=== PATIENT | female | born 1970 | race Caucasian/White ===

== ENCOUNTER 2017-10-15 07:13 | Day surgery (SDC) | payer BC ==
[2017-10-15] MEDS ORDERED: Propofol 200 MG/20 ML SDV ONE (07:19)
[2017-10-15] MEDS ORDERED: Bupivacaine 25%/EPINEPHrine/PF 30 ML ONE (07:32)
--- NOTE | 2017-10-15 07:40 | PCM.PREANE ---
Preanesthetic Assessment - Anesthesia/Transfusion/Family Hx Anesthesia History: Prior Anesthesia Without Reaction Family History of Anesthesia Reaction: No Transfusion History: No Prior Transfusion(s) Intubation History: Unknown - Review of Systems General: No Symptoms Pulmonary: No Symptoms Cardiovascular: No Symptoms Gastrointestinal: No Symptoms Neurological: No Symptoms Other: Reports: None - Physical Assessment Height: 1.7 m Weight: 96.162 kg ASA Class: 2 Mental Status: Alert & Oriented x3 Airway Class: Mallampati = 2 Dentition: Reports: Normal Dentition (3) Thyro-Mental Finger Breadths: 3 Mouth Opening Finger Breadths: 3 ROM/Head Extension: Full Lungs: Normal Respiratory Effort, Wheezing (mild expiratory wheesing) Cardiovascular: Regular Rate, Regular Rhythm - Allergies Allergies/Adverse Reactions: Allergies Allergy/AdvReac Type Severity Reaction Status Date / Time No Known Allergies Allergy Verified 10/10/17 09:19 - Blood Blood Available: No - Anesthesia Plan Pre-Op Medication Ordered: None - Acknowledgements Anesthesia Type Planned: MAC Pt an Appropriate Candidate for the Planned Anesthesia: Yes Alternatives and Risks of Anesthesia Discussed w Pt/Guardian: Yes Pt/Guardian Understands and Agrees with Anesthesia Plan: Yes PreAnesthesia Questionnaire - Past Health History Medical/Surgical History: Denies Medical/Surgical History HEENT History: Reports: Other (See Below) Other HEENT History: wears glasses/contacts Cardiovascular History: Reports: None Respiratory History: Reports: None Gastrointestinal History: Reports: None Genitourinary History: Reports: None 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 History: 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: Ectopic , Other OB/BYN History: tubal Neurological History: Reports: Other (See Below) Other Neuro History: Restless Leg Syndrome Psychiatric History: Reports: Anxiety, Depression Endocrine/Metabolic History: Reports: Obesity/BMI 30+ Hematologic History: Reports: None Immunologic History: Reports: None Oncologic (Cancer) History: Reports: None Dermatologic History: Reports: None - Infectious Disease History Infectious Disease History: Reports: Chicken Pox - Past Surgical History Head Surgeries/Procedures: Reports: None GI Surgical History: Reports: Bariatric Procedure Other GI Surgeries/Procedures: hx gastric bypass Female Surgical History: Reports: Hysterectomy Other Female Surgeries/Procedures: laparoscopy for tubal Musculoskeletal Surgical History: Reports: Knee Replacement, Other (See Below) Other Musculoskeletal Surgeries/Procedures:: Left TKA with later revision (re- replacement), trigger finger release left hand, foot surgery - SUBSTANCE USE Smoking Status *Q: Current Every Day Smoker (1/2 -3/4 ppd) Tobacco Use Within Last Twelve Months: Cigarettes Recreational Drug Use History: No - HOME MEDS Home Medications: Home Meds Sertraline [Zoloft] 100 mg PO DAILY 09/13/17 [History] Montelukast [Singulair] 1 tab PO ASDIRECTED 10/09/17 [History] Multivitamin [Multivitamins] 1 tab PO DAILY 10/09/17 [History] Pramipexole [Mirapex] 2 mg PO BEDTIME 10/09/17 [History] - CURRENT (IN HOUSE) MEDS Current Meds: Current Medications Hydrocodone Bitart/Acetaminophen (Avery 325-5 Mg) 1 tab PO Q4H PRN PRN Reason: Pain Bupivacaine HCl/Epinephrine Bitart (Marcaine 0.25%/Epinephrine 1:200,000) 10 ml INJECT ONETIME ONE Stop: 10/15/17 08:01 Cefazolin Sodium/Dextrose 2 gm (/ Premix) 50 mls @ 100 mls/hr IV ONETIME ONE Stop: 10/15/17 08:29 Lactated Ringer's (Ringers, Lactated) 1,000 mls @ 125 mls/hr IV ASDIRECTED ANIKA Discontinued Medications Propofol (Diprivan 20 Ml) Confirm Administered Dose 400 mg .ROUTE .STK-MED ONE Stop: 10/15/17 07:20
[2017-10-15] MEDS ORDERED: Ketorolac 30 MG/ML SDV ONE (07:50)
[2017-10-15] MEDS ORDERED: Lidocaine 2% 5 ML SDV ONE (07:50)
[2017-10-15] MEDS ORDERED: Sodium Chloride 0.9% 20 ML ONE (07:58)
[2017-10-15] MEDS ORDERED: ceFAZolin 1 GM Vial ONE (07:58)
[2017-10-15] MEDS ORDERED: Lactated Ringers 1,000 ML IV SCH (08:00)
[2017-10-15] MEDS ORDERED: Bupivacaine 0.25%/EPINEPHrine 1:200,000 10 ML SDV INJECT ONE (08:00)
[2017-10-15] MEDS ORDERED: ceFAZolin 2 GM in Premix Bag 1 BAG IV ONE (08:00)
[2017-10-15] MEDS ORDERED: Acetaminophen/HYDROcodone 325-5 MG Tab PO PRN (08:00)
[2017-10-15] MEDS ORDERED: fentaNYL 100 MCG/2 ML SDV ONE (08:13)
[2017-10-15] MEDS ORDERED: Midazolam 1 MG/ML 2 ML SDV ONE (08:13)
[2017-10-15] MEDS ORDERED: fentaNYL 100 MCG/2 ML SDV IVPUSH PRN (08:36)
--- NOTE | 2017-10-15 09:10 | PCM48HPAN ---
Post Anesthesia Note - EVALUATION WITHIN 48HRS OF ANESTHETIC Vital Signs in Normal Range: Yes Patient Participated in Evaluation: Yes Respiratory Function Stable: Yes Airway Patent: Yes Cardiovascular Function Stable: Yes Hydration Status Stable: Yes Pain Control Satisfactory: Yes Nausea and Vomiting Control Satisfactory: Yes Mental Status Recovered: Yes - COMMENTS/OBSERVATIONS Free Text/Narrative:: No anesthesia problems, patient skipped recovery room phase of postoperative care.
--- NOTE | 2017-10-15 15:47 | PCM.OPNOTE ---
- General Post-Op/Procedure Note Date of Surgery/Procedure: 10/15/17 Operative Procedure(s): right trigger thumb release Pre Op Diagnosis: right trigger thumb Post-Op Diagnosis: Same Anesthesia Technique: Local, MAC Primary Surgeon: Khadra Mccurdy Title Assistant: Tiffany Mckeon Condition: Good Free Text/Narrative:: Intake & Output 10/14/17 10/15/17 10/15/17 23:59 07:59 15:59 Intake Total 200 Balance 200
--- NOTE | 2017-10-20 14:33 | OR ---
SURGEON: YAMILEX PABON MD DATE OF PROCEDURE: 10/15/2017 PREOPERATIVE DIAGNOSIS: Right trigger thumb. POSTOPERATIVE DIAGNOSIS: Right trigger thumb. PROCEDURE: Right trigger thumb release. SUPPORT SERVICES COORDINATOR: MAGDA Cabrera REASON SUPPORT SERVICES COORDINATOR WAS NECESSARY: Retraction, prepping, draping, and closure assistance. INDICATIONS: Ms. Poole is a 47-year-old female, seen today in evaluation for right trigger thumb. Risks and benefits of release were discussed with her including, but not limited to, bleeding, infection, damage to underlying or overlying structures, possible need for future interventions, and possible scarring. PROCEDURE IN DETAIL: After informed consent was obtained, the patient was brought to the operating theater and laid in supine position. After adequate local MAC anesthesia was obtained, the area was prepped and draped, and a time-out was completed to confirm side and site. The arm was then exsanguinated and the tourniquet was insufflated to 200 mmHg after injection of local anesthesia. Attention was then paid to an incision directly over the A1 alma of the right thumb. Dissection was carried through the subcutaneous tissues, which was significantly inflamed and the alma itself was directly visualized. A 15 blade was used to transect this, and then dissection distally and proximally was undertaken using a Littler scissor under direct visualization. Once adequately released, the area was copiously irrigated and closed using 5-0 nylon stitch in a horizontal mattress fashion. Once adequately closed, the wound was dressed with Xeroform, fluffs, and a Kerlix gauze dressing, and a 2-inch Froylan wrap. The patient tolerated the procedure well. All count of needles were correct at the end of the case. FOLLOWUP INSTRUCTIONS: The patient will see us in 10 to 14 days, sooner if any problems, questions, or concerns. She will be given a release to go back to work next Friday as long as she is well tolerated pain justice. All questions answered. HONEY / NEHA /[id number]
== END 2017-10-15 09:16 | disposition home or self-care (01) ==
LOC: MW.SDS 07:13 → MERGE 08:45 → MW.SDS 09:16
PROVIDERS: ATTEND Plastic Surgery
DX: M65.311 Trigger thumb, right thumb (principal); Z79.899 Other long term (current) drug therapy; F17.200 Nicotine dependence, unspecified, uncomplicated
CPT/HCPCS: 26055; J0690; J1885; J2250; J3010; J7120; 01810; J2704

== ENCOUNTER 2019-10-10 08:59 | Emergency (ER) | payer BC, OTHER ==
--- NOTE | 2019-10-10 09:23 | EDM.PDOC ---
ED HPI GENERAL MEDICAL PROBLEM - General Chief Complaint: Lower Extremity Injury/Pain Stated Complaint: PAIN IN FOOT Time Seen by Provider: 10/10/19 09:07 - History of Present Illness INITIAL COMMENTS - FREE TEXT/NARRATIVE: HPI 49-year-old female presents for evaluation of gradual onset right plantar midfoot pain that is worsened with weight or palpation and relieved by rest. Patient notes a history of right foot plantar fasciitis with similar symptoms. Prior surgical intervention for plantar fasciitis. Symptoms began gradually last night when the patient went out to eat (reportedly with a different pair of footwear at the time), has taken no pain medications in the intervening time. Remains ambulatory. Declining crutches. ROS with no recent constitutional symptoms. Exam Gen: Pleasant, nontoxic-appearing, resting comfortably. HEENT: NC, AT, PEERL, EOMI. Resp: Unlabored respirations with a normal work of breathing. Card: Extremities warm and well perfused. GI: Non-distended. : Deferred MSK: Right calf without visible or palpable trauma. Ankle visually normal without ecchymosis inferior to the lateral malleolus. No tenderness over the posterior lateral malleolus, no tenderness over the posterior medial malleolus. Able to fully dorsiflex, plantarflex, annemarie, and invert the ankle with full functional range of motion . Foot visually normal with tenderness to palpation over the plantar aponeurosis, otherwise without tenderness to palpation, specifically including the navicular bone and the base of the 5th metatarsal. Able flex and extend all toes. Muscle compartments of the foot are soft. Neurovascular 2+ DP and PT pulses. Sensation grossly intact to touch on the calf. Sensation intact to touch on all toes, first web space, the medial, lateral, plantar and dorsal surfaces of the foot. Gait - Patient able to take four steps with a minimally antalgic gait. Neuro: alert and oriented 3, no facial asymmetry, vision and hearing WNL. Heme/Lymph: Deferred Skin: Normal color with no visible lesions (other than noted above). Psych: Mood and affect appropriate. MDM Previous chart, nursing note, and vitals reviewed. A: 49-year-old female presents for evaluation of gradual onset right plantar midfoot pain that is worsened with weight or palpation and relieved by rest. DDx & Evaluation: CMS intact, exam consistent with plantar fasciitis, no features to suggest infection, history and exam without evidence of fracture. Location pain is not consistent with Mortons neuroma. Discussed short-term use of crutches, patient declined. Provide patient with information regarding home physical therapy, recommended NSAIDs, and PCP follow-up within 48 hours. Impression: plantar fasciitis. - Related Data Allergies Allergy/AdvReac Type Severity Reaction Status Date / Time No Known Allergies Allergy Verified 10/10/19 09:17 Home Meds: Home Meds Montelukast [Singulair] 1 tab PO ASDIRECTED 10/09/17 [History] Multivitamin [Multivitamins] 1 tab PO DAILY 10/09/17 [History] Pramipexole [Mirapex] 2 mg PO BEDTIME 10/09/17 [History] Past Medical History - Past Health History Medical/Surgical History: Denies Medical/Surgical History HEENT History: Reports: Other (See Below) Other HEENT History: wears glasses/contacts Cardiovascular History: Reports: None Respiratory History: Reports: None Gastrointestinal History: Reports: None Genitourinary History: Reports: None 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 History: Reports: Ectopic , Other BAGGAGE SCREENER History: tubal Neurological History: Reports: Other (See Below) Other Neuro History: Restless Leg Syndrome Psychiatric History: Reports: None Endocrine/Metabolic History: Reports: Obesity/BMI 30+ Hematologic History: Reports: None Immunologic History: Reports: None Oncologic (Cancer) History: Reports: None Dermatologic History: Reports: None - Infectious Disease History Infectious Disease History: Reports: Chicken Pox, Measles, Mumps - Past Surgical History Head Surgeries/Procedures: Reports: None HEENT Surgical History: Reports: None GI Surgical History: Reports: Bariatric Procedure Other GI Surgeries/Procedures: hx gastric bypass Female Surgical History: Reports: Hysterectomy Other Female Surgeries/Procedures: laparoscopy for tubal Endocrine Surgical History: Reports: None Musculoskeletal Surgical History: Reports: Knee Replacement, Other (See Below) Other Musculoskeletal Surgeries/Procedures:: Left TKA with later revision (re- replacement), trigger finger release left hand, foot surgery Social & Family History - Family History Family Medical History: Noncontributory - Tobacco Use Smoking Status *Q: Current Every Day Smoker Years of Tobacco use: 37 Packs/Tins Daily: 0.5 - Caffeine Use Caffeine Use: Reports: Coffee, Soda - Recreational Drug Use Recreational Drug Use: No Review of Systems - Review of Systems Review Of Systems: See Below ED EXAM, GENERAL - Physical Exam Exam: See Below Course - Vital Signs Last Recorded V/S: Last Vital Signs Temp 35.7 C L 10/10/19 09:12 Pulse 84 10/10/19 09:12 Resp 18 10/10/19 09:12 BP 107/68 10/10/19 09:12 Pulse Ox 99 10/10/19 09:12 - Orders/Labs/Meds Orders: Active Orders 24 hr Category Date Time Status Communication Order [RC] STAT Care 10/10/19 09:21 Ordered Departure - Departure Time of Disposition: :22 Disposition: Left Without Being Seen 07 Clinical Impression: Plantar fasciitis - Discharge Information Instructions: Plantar Fasciitis Referrals: Patrica Waggoner NP [Primary Care Provider] - Additional Instructions: You were in seen in the [facility] Emergency Department for evaluation of right foot pain, your believed to have a strain of your plantar fashion at, this is termed plantar fasciitis. You may take ibuprofen and acetaminophen instructed below for treatment of pain. Please perform stretching and physical therapy as discussed. Please read and follow all of the instructions below. Please follow up with your primary care physician within 48 hours. When calling for follow-up care, please make the office aware that this follow-up is from your recent emergency room visit. If for any reason you are refused follow-up, please contact the [facility] Emergency Department at and asked to speak to the emergency department charge nurse. Your care today was limited to identifying and treating emergent medical problems only. Many people have subtle differences in their test results that require follow up with their outpatient physician(s) to correctly determine if this represents a normal variation or concerning abnormality with respect to your specific health. The care given to you today was limited to identifying and treating emergent medical problems - you need to request a copy of all of your medical records from today's visit and follow up with your outpatient physician(s) to review both today's visit and your overall health. If you have any new symptoms or if you are at all concerned about your health please return immediately to the emergency department. Prescriptions: If you are uninsured or have financial difficulties with filling your prescription(s), you may consider using a free pharmacy discount service such as [employer] ([employer]) or [employer] ([employer] These services allow you to search for a medication on your phone (or computer) and obtain a coupon that usually has a significant discount from the list wright at a pharmacy. Your physician as well as [facility] does not have a financial relationship with either of these services. You may also wish to speak with your physician to determine if lower cost prescriptions are possible. Obtaining primary care: 1. [facility] provides pediatrics (children), family medicine (children, adults, and some obstetrical care), and internal medicine (adults). Further specialty care is also available. Same day appointments are available. They may be contacted at [phone] and are open Friday through Friday 8 AM to 5 PM. The [facility] are located at [facility], [address] [place] [address]. 2. [facility] offers family medicine, internal medicine, [facility], and further specialty care. [facility] may be contacted at [phone]. [facility] is located at [address] [facility] [address]. 3. If you have health insurance, please also contact your insurer for a list of accepting providers under your policy, you may contact these providers for further health care. Occupational health: Work related injuries may consider following up with [facility], . Occupational health services are located at [address] [place] [address] and are open Friday through Friday from 7: 30 am to 5:00 pm. Obstetrical and Gynecological Care: [facility], , Friday through Friday 8 AM to 5 PM. [address], [place] [address]. Eyecare: If you have an eye injury you should follow up with your unclaimed property officer or with [facility], at [phone] or [phone] , they are located at [address] [place] [address]. [facility] Ephraim Washington DDS. [address] [facility] [place], [place]. Ph. [phone] Yogesh Walton Padmini DDS MS. [address] [facility] [address], [place], [place]. Ph. [phone] Burdick Silvano Fox DDS. 10 07/[address] [place] [address]. Ph. [phone] Misael Arroyo DDS. [address] [facility] [address] [place]. Ph. [phone] Robinson Alvarado DDS PC. [address] [facility] [address] [place], [place]. Ph. [phone] Bryan Hankins DDS. [address] [facility]. Ph. [phone] [facility]. [address] [place], [place]. Ph. [phone] [facility]. [address] [place] [address], [place], [place]. Ph. [phone] [facility] [address] [place] [address]. Ph. [phone] [facility]. [address] [place] [address] [address] [place]. Ph. [facility]. [address] [place]. Ph. You make take over the counter Acetaminophen (Tylenol) and Ibuprofen (Motrin or Aleve) as directed below for relief of pain. Take 600 mg of ibuprofen (three 200 mg tablets) with a glass of water every 6-8 hours as needed for pain or fever. Do not take if you have ulcers, GI bleeding, are , or are allergic to ibuprofen. Take 1,000 mg of acetaminophen (two 500 mg tablets) with a glass of water every 6-8 hours as needed for pain. Do not take if you are allergic to acetaminophen. If you have liver disease, please reduce your dose to a maximum of 2,000 mg per day. You can take these medications at the same time or on separate schedules. Do not take for more than 10 days. Do not take with alcohol or other acetaminophen containing medications. This medication may cause a mildly upset stomach, if so take it with a small snack. Stop taking it if you have persistent abdominal pain, heartburn, or any stomach pain. Do not take this medication if you have known ulcers. Please read the warnings at the end of this document regarding these medications. IBUPROFEN WARNING: This drug may infrequently cause serious (rarely fatal) bleeding from the stomach or intestines. Also, related drugs rarely have caused blood clots to form, resulting in heart attacks and strokes. This medication might also rarely cause similar problems. Talk to your doctor or pharmacist about the benefits and risks of treatment, as well as other possible medication choices. If you notice any of the following rare but very serious side effects, stop taking ibuprofen and seek immediate medical attention: black stools, persistent stomach/abdominal pain, vomit that looks like coffee grounds, chest pain, weakness on one side of the body, sudden vision changes, slurred speech. IBUPROFEN SIDE EFFECTS: Upset stomach, nausea, vomiting, heartburn, headache, diarrhea, constipation, drowsiness, and dizziness may occur. If any of these effects persist or worsen, notify your doctor or pharmacist promptly. If your doctor has directed you to use this medication, remember that he or she has judged that the benefit to you is greater than the risk of side effects. Many people using this medication do not have serious side effects. Tell your doctor immediately if any of these serious side effects occur: stomach pain, swelling of the hands or feet, sudden or unexplained weight gain, ringing in the ears ( tinnitus). Tell your doctor immediately if any of these unlikely but serious side effects occur: vision changes, rapid or pounding heartbeat, easy bruising or bleeding, difficult/painful swallowing. Tell your doctor immediately if any of these highly unlikely but very serious side effects occur: change in amount of urine, severe headache, very stiff neck, mental/mood changes, persistent sore throat or fever. This drug may rarely cause serious (possibly fatal) liver disease. If you notice any of the following highly unlikely but very serious side effects, stop taking ibuprofen and consult your doctor or pharmacist immediately: yellowing eyes and skin, dark urine, unusual/extreme tiredness. An allergic reaction to this drug is unlikely, but seek immediate medical attention if it occurs. Symptoms of an allergic reaction include: rash, itching/ swelling (especially of the face/tongue/throat), severe dizziness, trouble breathing. This is not a complete list of possible side effects. ACETAMINOPHEN SIDE EFFECTS: This drug usually has no side effects. If you do not have liver problems, the maximum dose of acetaminophen for adults is 4 grams per day (4000 milligrams). Taking more than the maximum daily amount may cause serious (possibly fatal) liver damage. Get medical help right away if you have any of the following symptoms of liver damage: persistent nausea/vomiting, extreme tiredness, stomach/abdominal pain, yellowing eyes/skin, dark urine. If you have liver problems, consult your doctor or pharmacist for a safe dosage of this medication. A very serious allergic reaction to this drug is rare. However , get medical help right away if you notice any symptoms of a serious allergic reaction, including: rash, itching/swelling (especially of the face/tongue/ throat), severe dizziness, trouble breathing. This is not a complete list of possible side effects. If you notice other effects not listed above, contact your doctor or pharmacist. DRUG INTERACTIONS: Your healthcare professionals (e.g., doctor or pharmacist) may already be aware of any possible drug interactions and may be monitoring you for it. Do not start, stop or change the dosage of any medicine before checking with them first. This drug should not be used with the following medications because very serious interactions may occur: cidofovir, ketorolac. If you are currently using any of these medications listed above, tell your doctor or pharmacist before starting ibuprofen. Before using this medication, tell your doctor or pharmacist of all prescription and nonprescription/herbal products you may use, especially of: anti-platelet drugs (e.g., cilostazol, clopidogrel), oral bisphosphonates (e.g., alendronate), other medications for arthritis (e.g., aspirin, methotrexate), "blood thinners" (e.g., enoxaparin, heparin, warfarin), corticosteroids (e.g., prednisone), cyclosporine, desmopressin, high blood pressure drugs (including BINDU inhibitors such as captopril, angiotensin II receptor antagonists such as losartan, and beta- blockers such as metoprolol), lithium, pemetrexed, "water pills" (diuretics such as furosemide, hydrochlorothiazide, triamterene). Check all prescription and nonprescription medicine labels carefully for other pain/fever drugs ( NSAIDs such as aspirin, celecoxib, naproxen). These drugs are similar to ibuprofen, so taking one of these drugs while also taking ibuprofen may increase your risk of side effects. Consult your doctor or pharmacist for more details. However, if your doctor has prescribed low doses of aspirin to prevent heart attack or stroke (usually at dosages of 81-325 milligrams a day), you should continue to take the aspirin. Daily use of ibuprofen may decrease aspirin 's ability to prevent heart attack/stroke. Talk to your doctor about using a different medication (e.g., acetaminophen) to treat pain/fever. If you must take ibuprofen, talk to your doctor about possibly taking immediate-release aspirin (not enteric-coated) while also taking the ibuprofen dose apart from your aspirin dose. Do not increase your daily dose of aspirin or change the way you take aspirin/other medications without your doctor's approval. This document does not contain all possible interactions. Therefore, before using this product, tell your doctor or pharmacist of all the products you use. Keep a list of all your medications with you, and share the list with your doctor and pharmacist. Sepsis Event Note - Evaluation Sepsis Screening Result: No Definite Risk - Focused Exam Vital Signs: Vital Signs Temp Pulse Resp BP Pulse Ox 10/10/19 09:12 35.7 C L 84 18 107/68 99 Date Exam was Performed: 10/10/19 Time Exam was Performed: 09:22 - My Orders Last 24 Hours: My Active Orders 10/10/19 09:21 Communication Order [RC] STAT - Assessment/Plan Last 24 Hours: My Active Orders 10/10/19 09:21 Communication Order [RC] STAT
== END 2019-10-10 09:30 | disposition home or self-care (01) ==
LOC: MW.ED 08:59
DX: M72.2 Plantar fascial fibromatosis (principal); E66.9 Obesity, unspecified; Z68.29 Body mass index [BMI] 29.0-29.9, adult; F17.210 Nicotine dependence, cigarettes, uncomplicated
CPT/HCPCS: 99283

== ENCOUNTER 2022-08-06 00:58 | Emergency (ER) | payer MEDICAID, OTHER ==
[2022-08-06] MEDS ORDERED: Ketorolac 30 MG/ML SDV IM STA (01:17)
[2022-08-06] MEDS ORDERED: predniSONE 20 MG Tab PO ONE (01:27)
== END 2022-08-06 02:42 | disposition home or self-care (01) ==
LOC: MW.ED 00:58
DX: M19.071 Primary osteoarthritis, right ankle and foot (principal); E66.9 Obesity, unspecified; Z68.26 Body mass index [BMI] 26.0-26.9, adult
CPT/HCPCS: 73610; 73630; 96372; 99283; A9270; J1885